=== PATIENT | male | born 1960 | race Caucasian/White ===

== ENCOUNTER → 2017-01-26 | Outpatient (CLI) | payer BC ==
--- NOTE | 2017-01-26 16:20 | PCVCIMAG ---
APPROVED REPORT Exam: Stress Echocardiogram Indication: Chest pain , Hypertension, Hyperlipidemia Patient Location: Echo lab Stress Nurse: Livier Sawant RN Room #: 2 Status: routine Ht: 5 ft 11 in HR: 68 bpm BP: 144/84 mmHg Rhythm: NSR Medical History Medical History: HTN, Hyperlipidemia Cardiac Risk Factors: HTN, Hyperlipidemia Previous Cardiac Procedures: none Pretest Chest Pain Characteristics: No chest pain Exercise History: Physically active Procedure The patient underwent an Exercise Stress Test using the Contreras Protocol. Blood pressure, heart rate, and EKG were monitored. An Echocardiogram was performed by software technician in four stages in quad fashion. At peak stress, four selected images were obtained and placed side by side with resting images for comparison. Stress Test Details Stress Test: Exercise stress testing was performed using a Contreras protocol. HR Resting HR: 68 bpmMax Heart Rate (APMHR): 166 bpm Max HR Achieved: 164 bpmTarget HR (85% APMHR): 141 bpm % of APMHR: 98 Recovery HR: 81 bpm HR response to stress: Normal HR response to stress BP Resting BP: 144/84 mmHg Max BP: 178/84 mmHg Recovery BP: 156/80 mmHg ECG Resting ECG: Sinus Rhythm Stress ECG: Sinus Rhythm ST Change: Upsloping ST depression, Non-ischemic Maximum ST Deviation: 1.6 mm Arrhythmia: Rare PAC,PVC Recovery ECG: Sinus Rhythm Recovery ST Change: Non-ischemic Recovery ST Deviation: 0.45 mm Recovery Arrhythmia: Rare PAC Clinical Reason for Termination: Maximal effort Stress Symptoms: none Exercise duration: 15 min 31 sec Highest Stage Achieved: Stage 6: 5.5 mph at 20% grade. Exercise capacity: 18.6 METs Overall Exercise Capacity for Age: Excellent Angina Score: None Stress ECG Conclusion The patient exercised according to the Contreras Protocol for15:31 minutes, achieving a maximum work level of 18.6 METS. The resting heart rate of 59 bpm, leslye to a maximal level of 164 bpm. This value represents 98 % of the maximal, age-predicted heart rate. The resting blood pressure of 144/84 mmHg, leslye to a maximum blood pressure of 178/84 mmHg. The exercise was stopped due to fatigue. Delgadillo Treadmill Score is 7.0 which is Low risk. Pre-Stress Echo The resting Echocardiogram showed normal left ventricular contractility with an estimated Ejection Fraction of about 55-60%. Normal wall motion in all segments on baseline images. Post-Stress Echo The stress Echocardiogram showed normal left ventricular contractility with an estimated Ejection Fraction of about 65-70%. Normal augmentation of wall motion in all segments on post stress images. Clinical No clinical or ECG evidence for ischemia. Conclusion Clinical Response: Non-ischemic Exercise Capacity: Superior Stress ECG Response: Non-ischemic Stress Echo Images: Non-ischemic No clinical, EKG or echocardiographic evidence for ischemia. No echocardiographic evidence for exercise induced ischemia. Normal stress echocardiogram with maximal exercise stress. <Conclusion> No clinical, EKG or echocardiographic evidence for ischemia. No echocardiographic evidence for exercise induced ischemia. Normal stress echocardiogram with maximal exercise stress.
== END | disposition home or self-care (01) ==
LOC: PCVCIMAG 11:25
PROVIDERS: ATTEND Internal Medicine Cardiovascular Disease
DX: I10 Essential (primary) hypertension (principal); E78.5 Hyperlipidemia, unspecified; R07.9 Chest pain, unspecified
CPT/HCPCS: 93325; 93351

== ENCOUNTER → 2019-01-01 | Outpatient (CLI) | payer SELFPAY ==
--- NOTE | 2019-01-01 11:38 | PCVCIMAG ---
APPROVED REPORT Study performed: 01/01/2019 09:40:00 Exam: Stress Echocardiogram Indication: Hyperlipidemia, Fam hx of cad Patient Location: Echo lab Stress Nurse: Nimisha Rubio RN Status: routine Ht: 5 ft 11 in HR: 64 bpm BP: 114/80 mmHg Rhythm: NSR Medical History Medical History: Renal cell carcinoma Exercise History: Physically active Procedure The patient underwent an Exercise Stress Test using the Contreras Protocol. Blood pressure, heart rate, and EKG were monitored. An Echocardiogram was performed by crime scene technician in four stages in quad fashion. At peak stress, four selected images were obtained and placed side by side with resting images for comparison. Stress Test Details Stress Test: Exercise stress testing was performed using a Contreras protocol. HR Resting HR: 64 bpmMax Heart Rate (APMHR): 164 bpm Max HR Achieved: 162 bpmTarget HR (85% APMHR): 139 bpm % of APMHR: 98 Recovery HR: 80 bpm HR response to stress: Normal HR response to stress BP Resting BP: 114/80 mmHg Max BP: 188/86 mmHg Recovery BP: 154/68 mmHg BP response to stress: Normal blood pressure response to stress. ECG Resting ECG: Sinus Rhythm Stress ECG: Sinus Rhythm Clinical Reason for Termination: Maximal effort Exercise duration: 14 min 18 sec Highest Stage Achieved: Stage 5: 5.0 mph at 18% grade. Exercise capacity: 17.50 METs Overall Exercise Capacity for Age: Excellent Pre-Stress Echo The resting Echocardiogram showed normal left ventricular contractility with an estimated Ejection Fraction of about 55-60%. Post-Stress Echo The stress Echocardiogram showed normal left ventricular contractility with an estimated Ejection Fraction of about 65-70%. Normal augmentation of wall motion in all segments on post stress images. Clinical No clinical or ECG evidence for ischemia. Conclusion Clinical Response: Non-ischemic Exercise Capacity: Superior Stress ECG Response: Non-ischemic Stress Echo Images: Non-ischemic The left ventricle is normal in size and wall thickness in both the rest and stress images. Trace mitral and tricuspid regurgitation. Pulmonary artery pressure is 30mmHg. Other Information Study Quality: Good <Conclusion> The left ventricle is normal in size and wall thickness in both the rest and stress images. Trace mitral and tricuspid regurgitation. Pulmonary artery pressure is 30mmHg.
== END | disposition home or self-care (01) ==
LOC: PCVCIMAG 09:29
PROVIDERS: ATTEND Internal Medicine Cardiovascular Disease
DX: I07.1 Rheumatic tricuspid insufficiency (principal); E78.5 Hyperlipidemia, unspecified; Z82.49 Family history of ischemic heart disease and other diseases of the circulatory system
CPT/HCPCS: 93325; 93351